=== PATIENT | male | born 1930 | race Caucasian/White ===

== ENCOUNTER 2017-10-02 20:59 | Emergency (ER) | payer OTHER ==
[~2017-10-02] VITALS: Ht 182.9 cm; Wt 100.7 kg
[2017-10-02] MEDS ORDERED: PLAVIX75 MG (21:19)
[2017-10-02] MEDS ORDERED: MONTELUKAST SOD10 MG (21:20)
[2017-10-02] MEDS ORDERED: ZETIA10 MG (21:21)
[2017-10-02] MEDS ORDERED: PRINIVIL5 MG (21:22)
[2017-10-02] MEDS ORDERED: ADVAIR 100-501 EACH (21:24)
[2017-10-02] MEDS ORDERED: LABETALOL HCL100 MG (21:34)
== END 2017-10-03 05:02 | disposition designated cancer center or children's hospital (05) ==
LOC: ER 20:59
DX: I62.03 Nontraumatic chronic subdural hemorrhage (principal); R53.1 Weakness